=== PATIENT | male | born 1945 | race Caucasian/White ===

== ENCOUNTER 2016-12-30 23:16 | Inpatient (IN) | payer OTHER ==
[~2016-12-30] VITALS: Ht 180.3 cm; Wt 127.6 kg
[~2016-12-30 23:16] MED LIST: ACET-1256 PO; ASPI1TAB48 PO; DOCU100C31 PO; DORZ1SOL6 OPB; FRS/40 PO; GLC/500 PO; HYDR12.55 PO; LOSA1TAB PO; LPT/20 PO; METO50TA16 PO; ONDA4TAB46 PO; POTA10CA28 PO; PRED1SUS3 OPR
--- NOTE | 2016-12-30 23:50 | EMERGENCY ROOM VISIT NOTE ---
History Report prepared by Christine: Kunal Morales Under the Supervision of: Joce PedersenO. First contact with patient: 23:29 Chief Complaint: DIZZY Stated Complaint: DIZZY, TROUBLE WALKING, VERY HOT Nursing Triage Summary: pt states he didn't feel well today all day. states he laid in his room around noon and "it was very hot." states he felt warm after that and feels warm now. pt states he feels dizzy and was unable to get out of bed on his first try at home. states his vision is normal for him. denies chest pain, denies numbness/tingling. states he has back pain chronically and intermittent sob chronically. hx of DC and AAA repair ~11 years ago. denies n/v, diarrhea, urinary symptoms. upon assessment pt alert and oriented x4. pt breathing regularly and independently. pt able to get up from wheelchair and get in bed. skin hot to touch. lungs clear in all boyce. History of Present Illness The patient is a 71 year old male who presents to the Emergency Room with complaints of persistent generalized weakness starting today. He has been unable to get up from a sitting and lying down position. He feels warm to touch. The patient also complains of a fever. He currently denies any pain. As per , the patient has been somewhat confused. He denies cough, cold, chest pain, shortness of breath, abdominal pain, urinary symptoms, rash, or any other complaints. He reports a normal appetite and a normal fluid intake. He has a history of pneumonia but otherwise denies any history of lung disease. Source of History: patient, spouse/significant other Onset: today Position: other (global) Symptom Intensity: No pain Quality: other (generalized weakness) Associated Symptoms: + fevers, No SOB, No abdominal pain, No chest pain, No cough, No rash, No urinary symptoms Review of Systems See HPI for pertinent positives and negatives. A total of ten systems were reviewed and were otherwise negative. Past Medical & Surgical Medical Problems: (1) Diabetes (2) Hypertension (3) Sepsis Surgical Problems: (1) S/P AAA repair Family History Patient reports no known family medical history. Social History Smoking Status: Former Smoker Alcohol Use: occasionally Drug Use: none Marital Status: Housing Status: lives with significant other Occupation Status: retired Current/Historical Medications Scheduled Aspirin (Aspirin Low Dose), 81 MG PO QPM Atorvastatin (Atorvastatin Calcium), 20 MG PO QPM Dorzolamide Hcl-Timolol Maleat (Cosopt Oph), 1 DROPS OPB BID Furosemide (Lasix), 40 MG PO QAM Hydrochlorothiazide (Hydrochlorothiazide), 12.5 MG PO QAM Losartan Potassium (Cozaar), 25 MG PO QAM Metformin Hcl (Glucophage), 500 MG PO BIDM Metoprolol Tartrate (Lopressor) (Lopressor), 50 MG PO PM Potassium Chloride (Micro-K Ext Rel), 10 MEQ PO QAM Prednisolone Acetate (Ophth) (Pred Forte 1% Oph), 1 DROPS OPR BID Scheduled PRN Acetaminophen (Tylenol), 500 MG PO Q4H PRN for Pain Docusate Sodium (Docusate Sodium), 100 MG PO BID PRN for Constipation Ondansetron Hcl (Zofran), 4 MG PO Q8H PRN for Nausea Allergies Coded Allergies: BEE STING (Verified Allergy, Mild, SWELLING, 07/14/16) RADHA Inhibitors (Verified Adverse Reaction, Intermediate, COUGH, 07/14/16) Physical Exam Vital Signs Date Time Temp Pulse Resp B/P Pulse Ox O2 Delivery O2 Flow Rate FiO2 12/31/16 01:33 37.7 119 22 153/69 93 Room Air 12/31/16 00:02 93 Room Air 12/31/16 00:02 93 Room Air 12/30/16 23:48 120 12/30/16 23:37 38.4 122 18 150/103 94 Room Air 12/30/16 23:22 37.3 120 20 152/74 94 Room Air Physical Exam GENERAL: Awake, alert, well-appearing, in no distress HENT: Normocephalic, atraumatic. Oropharynx unremarkable. EYES: Normal conjunctiva. Sclera non-icteric. NECK: Supple. No nuchal rigidity. FROM. No JVD. RESPIRATORY: Clear to auscultation. CARDIAC: Tachycardic rate, normal rhythm. Extremities warm and well perfused. Pulses equal. ABDOMEN: Soft, non-distended. No tenderness to palpation. No rebound or guarding. No masses. RECTAL: Deferred. MUSCULOSKELETAL: Chest examination reveals no tenderness. The back is symmetrical on inspection without obvious abnormality. There is no CVA tenderness to palpation. No joint edema. LOWER EXTREMITIES: Calves are equal size bilaterally and non-tender. No edema. No discoloration. NEURO: Normal sensorium. No sensory or motor deficits noted. SKIN: No rash or jaundice noted. Abrasions to right forearm, not infected. Medical Decision & Procedures ER Provider Diagnostic Interpretation: X-ray: Per my interpretation: CHEST X-RAY Negative for infiltrates. Laboratory Results 12/31/16 00:05 Red Blood Count 5.07, Mean Corpuscular Volume 92.3, Mean Corpuscular Hemoglobin 30.8, Mean Corpuscular Hemoglobin Concent 33.3, Mean Platelet Volume 10.2, Neutrophils (%) (Auto) 87.7, Lymphocytes (%) (Auto) 8.0, Monocytes (%) (Auto) 3.8, Eosinophils (%) (Auto) 0.0, Basophils (%) (Auto) 0.2, Neutrophils # (Auto) 11.05, Lymphocytes # (Auto) 1.01, Monocytes # (Auto) 0.48, Eosinophils # (Auto) 0.00, Basophils # (Auto) 0.02 12/31/16 00:05 Test 12/31/16 00:05 12/31/16 00:20 12/31/16 00:22 12/31/16 01:21 White Blood Count 12.60 K/uL (4.8-10.8) Red Blood Count 5.07 M/uL (4.7-6.1) Hemoglobin 15.6 g/dL (14.0-18.0) Hematocrit 46.8 % (42-52) Mean Corpuscular Volume 92.3 fL (80-100) Mean Corpuscular Hemoglobin 30.8 pg (25-34) Mean Corpuscular Hemoglobin Concent 33.3 g/dl (32-36) Platelet Count 190 K/uL (130-400) Mean Platelet Volume 10.2 fL (7.4-10.4) Neutrophils (%) (Auto) 87.7 % Lymphocytes (%) (Auto) 8.0 % Monocytes (%) (Auto) 3.8 % Eosinophils (%) (Auto) 0.0 % Basophils (%) (Auto) 0.2 % Neutrophils # (Auto) 11.05 K/uL (1.4-6.5) Lymphocytes # (Auto) 1.01 K/uL (1.2-3.4) Monocytes # (Auto) 0.48 K/uL (0.11-0.59) Eosinophils # (Auto) 0.00 K/uL (0-0.5) Basophils # (Auto) 0.02 K/uL (0-0.2) RDW Standard Deviation 50.3 fL (36.4-46.3) RDW Coefficient of Variation 15.0 % (11.5-14.5) Immature Granulocyte % (Auto) 0.3 % Immature Granulocyte # (Auto) 0.04 K/uL (0.00-0.02) Anion Gap 7.0 mmol/L (3-11) Est Creatinine Clear Calc Drug Dose 80.5 ml/min Estimated GFR () 76.8 Estimated GFR (Non- 66.2 BUN/Creatinine Ratio 15.3 (10-20) Calcium Level 8.7 mg/dl (8.5-10.1) Magnesium Level 2.0 mg/dl (1.8-2.4) Total Bilirubin 0.9 mg/dl (0.2-1) Direct Bilirubin 0.2 mg/dl (0-0.2) Aspartate Amino Transf (AST/SGOT) 11 U/L (15-37) Alanine Aminotransferase (ALT/SGPT) 22 U/L (12-78) Alkaline Phosphatase 86 U/L (45-117) Troponin I < 0.015 ng/ml (0-0.045) Total Protein 7.3 gm/dl (6.4-8.2) Albumin 4.1 gm/dl (3.4-5.0) Bedside Lactic Acid Venous 1.41 mmol/L (0.90-1.70) Bedside Glucose 159 mg/dl (70-99) Urine Color YELLOW Urine Appearance CLEAR (CLEAR) Urine pH 6.0 (4.5-7.5) Urine Specific [place] 1.019 (1.000-1.030) Urine Protein 1+ (NEG) Urine Glucose (UA) NEG (NEG) Urine Ketones 1+ (NEG) Urine Occult Blood NEG (NEG) Urine Nitrite NEG (NEG) Urine Bilirubin NEG (NEG) Urine Urobilinogen NEG (NEG) Urine Leukocyte Esterase NEG (NEG) Urine WBC (Auto) 1-5 /hpf (0-5) Urine RBC (Auto) 0-4 /hpf (0-4) Urine Hyaline Casts (Auto) 1-5 /lpf (0-5) Urine Epithelial Cells (Auto) 5-10 /lpf (0-5) Urine Bacteria (Auto) NEG (NEG) Laboratory results reviewed by me Medications Administered Medications (Trade) Dose Ordered Sig/Lynn Route Start Time Stop Time Status Last Admin Dose Admin Sodium Chloride (Nss 1000ml) 1,000 ml @ 999 mls/hr Q1H1M STAT IV 12/30/16 23:55 12/31/16 00:55 DC 12/31/16 00:37 999 MLS/HR Acetaminophen (Tylenol Tab) 1,000 mg NOW STAT PO 12/30/16 23:55 12/30/16 23:57 DC 12/31/16 00:37 1,000 MG Ceftriaxone Sodium (Rocephin Inj) 1 gm NOW STAT IV 12/31/16 02:00 12/31/16 02:01 DC 12/31/16 02:08 1 GM ECG Indication: weakness Rate (beats per minute): 121 Rhythm: sinus tachycardia Findings: other (Nonspecific ST depression in v2 and v3; normal axis) ED Course 2329: The patient was evaluated in room B07. A complete history and physical exam was performed. 2355: Acetaminophen 1000 mg PO, Sodium Chloride 1000 ml @ 999 mls/hr IV 0131: Upon reexamination, the patient was resting comfortably. I discussed the test results and treatment plan with him. The patient will be evaluated for further management. 0200: Azithromycin 500 mg/Dextrose 255 ml @ 125 mls/hr IV, Rocephin Inj 1 gm IV 0204: I discussed the patient's case with Dr. Avila, from [facility]. Medical Decision Differential diagnosis includes but is not limited to sepsis, pneumonia, UTI, cardiac event. Resting in no distress; patient started on IV Rocephin and Zithromax IV fluids Tylenol. Patient is not in septic shock; this was discussed with family and patient as well as the hospitalist for admission Consults Time Called: 020 Consulting Physician: Dr. Avila, from [facility] Returned Call: 020 I discussed the patient's case with Dr. Avila, from [facility]. Impression Primary Impression: Acute febrile illness Additional Impressions: Acute weakness SIRS (systemic inflammatory response syndrome) Scribe Attestation The scribe's documentation has been prepared under my direction and personally reviewed by me in its entirety. I confirm that the note above accurately reflects all work, treatment, procedures, and medical decision making performed by me. Departure Information Dispostion Being Evaluated By Hospitalist Referrals Ben Ceron M.D. (PCP) Patient Instructions My [facility] Problem Qualifiers
[2016-12-30] MEDS ORDERED: ACETAMINOPHEN 500 MG TAB PO STA (23:55)
[2016-12-30] MEDS ORDERED: SODIUM CHLORIDE 0.9% 1000ML 1,000 ML IV STA (23:55)
[2016-12-31] VITALS (9 sets, daily range): BP systolic 107–177; BP diastolic 67–92; PULSE 74–118; TEMP 36.6–38.5; O2SAT 94–98; Ht 180.3 cm; Wt 127.6 kg
[2016-12-31 00:39] LABS: BASO % 0.2 %; BASO ABS # 0.02 K/uL (0-0.2); COMPLETE YES; HEMATOCRIT 46.8 % (42-52); IG% 0.3 %; LYMPH ABS # 1.01 K/uL (1.2-3.4); MEAN CELL VOLUME 92.3 fL (80-100); MEAN CORPUSCULAR HEMOGLOBIN 30.8 pg (25-34); MEAN CORPUSCULAR HGB CONC 33.3 g/dl (32-36); MEAN PLATELET VOLUME 10.2 fL (7.4-10.4); MONO % 3.8 %; NEUT % 87.7 %; PLATELET COUNT 190 K/uL (130-400); RED BLOOD COUNT 5.07 M/uL (4.7-6.1)
[2016-12-31 01:07] LABS: ALKALINE PHOSPHATASE 86 U/L (45-117); ALT/SGPT 22 U/L (12-78); BLOOD UREA NITROGEN 17 mg/dl (7-18); BUN/CREATININE RATIO 15.3 (10-20); CALCIUM 8.7 mg/dl (8.5-10.1); CARBON DIOXIDE 31 mmol/L (21-32); CHLORIDE 104 mmol/L (98-107); GLUCOSE 171 mg/dl (70-99)
[2016-12-31 01:10] LABS: POTASSIUM 4.2 mmol/L (3.5-5.1); SODIUM 142 mmol/L (136-145)
[2016-12-31 01:15] LABS: AST/SGOT 11 U/L (15-37)
[2016-12-31 01:51] LABS: URINE APPEARANCE CLEAR (CLEAR); URINE BILIRUBIN NEG (NEG); URINE COLOR YELLOW; URINE NITRITE NEG (NEG); URINE SPECIFIC GRAVITY 1.019 (1.000-1.030); UROBILINOGEN NEG (NEG)
[2016-12-31 01:53] LABS: MANUAL MICROSCOPIC REQUIRED? NO; REVIEW REQ? NO
[2016-12-31] MEDS ORDERED: AZITHROMYCIN IV 500 MG in DEXTROSE 5% 250ML 250 ML IV ONE (02:00)
[2016-12-31] MEDS ORDERED: CEFTRIAXONE SOD INJ 1 GM ADDVIAL IV STA (02:00)
[2016-12-31] MEDS ORDERED: METOPROLOL TARTRATE 50 MG TAB PO STA (02:43)
[2016-12-31] MEDS ORDERED: DOXYCYCLINE IV 100 MG in DEXTROSE 5% 100ML 100 ML IV STA (02:44)
[2016-12-31] MEDS ORDERED: DEXTROSE 50% 50 ML SYR IV PRN (02:45)
[2016-12-31] MEDS ORDERED: GLUCOSE 40% GEL 15 GM TUBE PO PRN (02:45)
[2016-12-31] MEDS ORDERED: GLUCAGON FOR INJ 1 MG VIAL SQ PRN (02:45)
[2016-12-31] MEDS ORDERED: ONDANSETRON INJ 2 MG/ML 2 ML VIAL IV PRN (02:45)
[2016-12-31] MEDS ORDERED: DOCUSATE SODIUM 100 MG CAP PO PRN (02:45)
[2016-12-31] MEDS ORDERED: MoRPHine SULFATE 4 MG/ML 1 ML CARP\\VIAL IV PRN (02:45)
[2016-12-31] MEDS ORDERED: GLUCOSE 10 TABS/TUBE PO PRN (02:45)
[2016-12-31] MEDS ORDERED: NITROGLYCERIN 0.4 MG SL PER TAB CHARGE SL PRN (02:45)
[2016-12-31] MEDS ORDERED: TRAMADOL HCL 50 MG TAB PO PRN (02:45)
[2016-12-31 02:58] LABS: THYROID STIMULATING HORMONE 0.511 uIu/ml (0.300-4.500)
[2016-12-31] MEDS ORDERED: SODIUM CHLORIDE 0.45% 1000ML 1,000 ML IV ONE (03:45)
--- NOTE | 2016-12-31 04:32 | HISTORY & PHYSICAL EXAMINATION ---
DATE OF ADMISSION: 12/31/2016 PRIMARY CARE DOCTOR: Dr. Ceron. CHIEF COMPLAINT: Weakness, fever. HISTORY OF PRESENT ILLNESS: Hx obtained from px and records. Medical history is significant for CAD status post CABG, HTN, hx postop AF sp anticoagulation, hypertension, hyperlipidemia, AAA status post surgery, past tobacco abuse, DM2 on oral medications. Recent confinement in August 2015 for pericardial effusion. One day history of generalized weakness, fever. No unusual headache, good appetite. Denies chest pain, shortness of breath, cough symptoms. Denies abd pain/diarrhea/bladder symptoms. Px co right leg discomfort as per . May have been from mowing. At the Emergency Room, the patient received IV ceftriaxone. MEDICAL HISTORY: As above. SURGERIES: He had AAA, bypass, cataract surgery. HOME MEDICATIONS: Include aspirin, dorzolamide, HCTZ, losartan, potassium chloride, atorvastatin, metformin, metoprolol, Vicodin, furosemide, atropine, nitroglycerin, Zofran, acetaminophen and Cosopt. ALLERGIES: RADHA INHIBITOR. FAMILY HISTORY: Heart disease. 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 Past tobacco abuse. No chronic ETOH intake. REVIEW OF SYSTEMS: As per HPI, all other ROS negative. PHYSICAL EXAMINATION: VITAL SIGNS: Blood pressure was noted to be 150/74, pulse rate 120, RR 27, sats 94 on room air. GENERAL: Noted to be obese, slightly anxious, no respiratory distress. SKIN: Normal color. HEENT: [employer] palpebral conjunctivae. Dry mucosa. NECK: Short neck. LUNGS: Decreased breath sounds. HEART: Tachycardic. ABDOMEN: Some distension. EXTREMITIES: Erythema on the right lower extremity, excoriation sandy on the right upper extremity. NEUROLOGIC: No gross focality. LABORATORY DATA: Hemoglobin was noted to be 15.6, hematocrit 46.8, white cells was 12.6, platelets 190. Sodium 140, potassium 4.2, chloride 104, CO2 31, BUN 70, creatinine 1.1, glucose 171 Hemoglobin A1c from August 2016 was 7. IMAGING DATA: Chest x-ray as per my interpretation : atelectasis, possible infiltrate on the left. EKG as per my interpretation, rate 120, sinus tachycardia, ST depressions in anterior leads. Urine analysis showed WBC 1-5, ketones. ASSESSMENT: 1. Sepsis possible sources : cellulitis, right lower extremity atypical pneumonia. 2. Right lower extremity swelling secondary to cellulitis ro DVT. 3. Hypertension, slightly elevated secondary to illness, missed nighttime medications. 4. Coronary artery disease, status post coronary artery bypass graft. 5. hx Abdominal aortic aneurysm sp surgery 6. hx postop PAF as per records sp coumadin px NSR 7. Past tobacco use. 8. DM2, on oral meds well controlled as of recent outpx HgA1c PLAN: PCU ff CS, Doxycycline for now. IVF, hold home diuretics for now until hydration improved Right lower extremity Dopplers to rule out deep vein thrombosis. Local measures for cellulitis ISS BG goal 140-180 ; patient due for hemoglobin A1c check. DVT prophylaxis. Lovenox subcutaneously. Full code. MTDD
[2016-12-31] MEDS: ACETAMINOPHEN 325 MG TAB PO PRN ×3 (05:02→16:45)
[2016-12-31 06:26] LABS: HEMATOCRIT 43.1 % (42-52); MEAN CELL VOLUME 91.1 fL (80-100); MEAN CORPUSCULAR HEMOGLOBIN 30.2 pg (25-34); MEAN CORPUSCULAR HGB CONC 33.2 g/dl (32-36); MEAN PLATELET VOLUME 10.2 fL (7.4-10.4); PLATELET COUNT 176 K/uL (130-400); RED BLOOD COUNT 4.73 M/uL (4.7-6.1); WHITE BLOOD COUNT 12.85 K/uL (4.8-10.8)
[2016-12-31 06:41] LABS: PROTHROMBIN TIME (PATIENT) 11.2 SECONDS (9.0-12.0)
[2016-12-31 06:48] LABS: ESTIMATED AVERAGE GLUCOSE 163 mg/dl; HA1C FLAG Normal (Normal)
--- NOTE | 2016-12-31 06:56 | DIAGNOSTIC IMAGING REPORT ---
ULTRASOUND RIGHT VENOUS DOPP LOWER EXT UNILAT CLINICAL HISTORY: Right leg swelling COMPARISON STUDY: No previous studies for comparison. FINDINGS: Real-time and color flow Doppler imaging were performed. Flow was seen within the femoral, popliteal and calf veins with no intraluminal thrombus demonstrated. The saphenous vein is patent. IMPRESSION: No evidence of right lower extremity DVT. Electronically signed by: West Friedman M.D. 12/31/2016 6:55 AM Dictated Date/Time: 12/31/2016 6:55 AM
[2016-12-31] MEDS: INSULIN ASPART 100 UNITS/ML 3 ML PEN SC SCH ×4 (07:00→20:31)
--- NOTE | 2016-12-31 07:18 | DIAGNOSTIC IMAGING REPORT ---
CHEST ONE VIEW PORTABLE CLINICAL HISTORY: sob COMPARISON STUDY: February 16, 2016 FINDINGS: The heart is mildly enlarged. There are postsurgical changes of a midline sternotomy. There are persistent basilar atelectatic changes with slight improvement in aeration of the lung bases.[ There is no failure. There are no significant pleural effusions. IMPRESSION: Slight improvement in the basilar atelectasis/scarring. Electronically signed by: West Friedman M.D. 12/31/2016 7:17 AM Dictated Date/Time: 12/31/2016 7:15 AM
[2016-12-31 07:36] LABS: BASO % 0.1 %; BASO ABS # 0.01 K/uL (0-0.2); COMPLETE YES; IG% 0.4 %; LYMPH % 8.6 %; MONO % 5.5 %; NEUT % 85.4 %
[2016-12-31] MEDS: METOPROLOL TARTRATE 50 MG TAB PO SCH ×2 (08:22→20:30)
[2016-12-31] MEDS: LOSARTAN POTASSIUM 25 MG TAB PO SCH (08:22)
[2016-12-31] MEDS: DORZOLAMIDE/TIMOLOL 22.3/6.8MG/ML 10 ML BTL OPB SCH ×2 (08:23→20:27)
[2016-12-31] MEDS: ENOXAPARIN 40 MG/0.4 ML SYR SC SCH (08:28)
[2016-12-31 11:16] LABS: LYME DISEASE AB IGG NEG (NEG); LYME DISEASE AB IGM NEG (NEG)
[2016-12-31] MEDS: ASPIRIN 81 MG ECTAB PO SCH (20:28)
[2016-12-31] MEDS: ATORVASTATIN 20 MG TAB PO SCH (20:28)
[2016-12-31] MEDS: DOXYCYCLINE IV 100 MG in DEXTROSE 5% 100ML 100 ML IV SCH (20:41)
--- NOTE | 2016-12-31 20:52 | Progress Note ---
Progress Note Date of Service December 31, 2016. Progress Note ATTENDING NOTE : pt admitted earlier today presented with dizzy spell , rt lower ext cellulitis Dizzy spell improved after IV hydration has persisted redness, increased warmth on rt lower ext improved since yesterday as per pt and no fever or chills WBC remains in 12K D/C IVF ok to DC tele cont IV Doxycycline till further improvement of lower ext cellulitis Lyme titer negative update given to pt plan to discharge home in 1-2 days with PO abx
[2017-01-01] VITALS (7 sets, daily range): BP systolic 125–149; BP diastolic 65–96; PULSE 75–80; TEMP 36.5–37; O2SAT 96–98
[2017-01-01] MEDS: INSULIN ASPART 100 UNITS/ML 3 ML PEN SC SCH ×4 (06:30→20:48)
[2017-01-01] MEDS: DOXYCYCLINE IV 100 MG in DEXTROSE 5% 100ML 100 ML IV SCH (09:12)
[2017-01-01] MEDS: DORZOLAMIDE/TIMOLOL 22.3/6.8MG/ML 10 ML BTL OPB SCH ×2 (09:12→20:47)
[2017-01-01] MEDS: METOPROLOL TARTRATE 50 MG TAB PO SCH ×2 (09:13→20:47)
[2017-01-01] MEDS: LOSARTAN POTASSIUM 25 MG TAB PO SCH (09:13)
[2017-01-01] MEDS: ENOXAPARIN 40 MG/0.4 ML SYR SC SCH (09:14)
[2017-01-01] MEDS: ACETAMINOPHEN 325 MG TAB PO PRN ×2 (11:43→20:46)
[2017-01-01] MEDS ORDERED: VANCOMYCIN INJ 2,700 MG in SODIUM CHLORIDE 0.9% 500ML 500 ML IV ONE (16:00)
[2017-01-01] MEDS ORDERED: VANCOMYCIN CONSULT ACTIVE PRN (16:00)
--- NOTE | 2017-01-01 16:01 | Pharmacy Progress Note ---
Pharmacy Abx Initial Consult Date of Service January 01, 2017. Pharmacy Dosing Scope Date of Consult: 01/01/17 Consultation requested by: Dr. Tsang Pharmacy is consulted to initiate Vancomycin IV dosing therapy, order appropriate labs and adjust drug dose/frequency. Subjective The patient is a 71 year old male admitted on December 31, 2016 at 02:14. Objective Height (Feet): 5 Height (Inches): 11.00 Weight (Kilograms): 127.600 Vital Signs (Past 12Hrs) Vital Signs Past 12 Hours Date Time Temp Pulse Resp B/P Pulse Ox O2 Delivery O2 Flow Rate FiO2 01/01/17 08:14 36.6 80 16 146/74 97 Room Air 01/01/17 08:00 96 Room Air Lab Results (24Hrs) Test 01/01/17 07:47 01/01/17 11:37 Bedside Glucose 118 mg/dl (70-99) 169 mg/dl (70-99) Micro Results Date/Time Source Procedure Growth Status 12/31/16 00:05 Blood Blood Culture - Preliminary NO GROWTH TO DATE. Resulted 12/31/16 00:05 Blood Blood Culture - Preliminary Gram Positive Cocci Resulted 12/31/16 01:21 Urine , Clean Catch Urine Culture - Preliminary NO GROWTH - LESS THAN 1,000 COLONIES/... Resulted Assessment & Plan Assessment 71 year old male admitted with LE cellulitis. Patient was initially started on doxycycline IV. This was changed to Vancomycin IV when 1/2 BC reported growth of GPC. Plan Vancomycin IV for treatment of LE cellulitis, GPC bacteremia Vancomycin IV * Loading dose: 2700 mg (21 mg/kg) * Maintenance dose: 1600 mg IV (12.5 mg/kg) every 12 hours * Goal trough level for cellulitis/bacteremia : 15 to 20 mcg/mL * Trough level ordered for 01/03/17 * A less than traditional dose and extended dosing interval have been selected due to likelihood of drug accumulation in obese patient. Pharmacy will continue to follow and will adjust dose/frequency as necessary. Thank you.
[2017-01-01] MEDS: ASPIRIN 81 MG ECTAB PO SCH (20:47)
[2017-01-01] MEDS: ATORVASTATIN 20 MG TAB PO SCH (20:48)
--- NOTE | 2017-01-01 21:08 | Progress Note ---
Internal Med Progress Note Date of Service: January 01, 2017. Provider Documentation: SUBJECTIVE: no fever or chills no complain of dizzy spell OBJECTIVE: Vital Signs-as noted below Exam: General-no sign of distress Eyes-sclera non icteric ENT-NAD Neck-no JVD , no thyromegaly Lungs-CTA Heart-regular S1/S2 Abdomen-soft, non tender Extremities-improved erythema on rt lower ext Neuro-AAO x3, no focal deficit Lab data as noted below. ASSESSMENT & PLAN: RT LOWER EXT CELLULITIS : improving blood culture 1/2 bottle gram positive bacteremia started on IV Vancomycin D/c Doxycycline follow blood culture report DIZZY SPELL /LIGHTHEADEDNESS; due to dehydration symptom resolved IVF D/aislinn pt is encouraged to increase oral fluid intake DVT PROPHYLAXIS sub q heparin DISPOSITION Possible discharge home in 1-2 days Medicine follow up with Dr Ceron Vital Signs: Date Time Temp Pulse Resp B/P Pulse Ox O2 Delivery O2 Flow Rate FiO2 01/01/17 19:50 96 Room Air 01/01/17 17:05 36.8 75 19 129/96 96 01/01/17 16:00 96 Room Air 01/01/17 08:14 36.6 80 16 146/74 97 Room Air 01/01/17 08:00 96 Room Air 01/01/17 00:00 37.0 80 20 125/65 96 Room Air 01/01/17 00:00 96 Room Air 12/31/16 23:24 79 94 21 Lab Results: Results Past 24 Hours Test 01/01/17 07:47 01/01/17 11:37 01/01/17 16:56 01/01/17 19:53 Range/Units Bedside Glucose 118 169 141 175 70-99 mg/dl Microbiology Results 01/01/17 MRSA DNA Surveillance Screen, Received Pending
[2017-01-02 01:41] VITALS: O2SAT 96
[2017-01-02] MEDS: VANCOMYCIN INJ 1,600 MG in SODIUM CHLORIDE 0.9% 500ML 500 ML IV SCH ×2 (02:13→13:30)
[2017-01-02 07:42] VITALS: BP 160/88; PULSE 82; TEMP 37; O2SAT 98
[2017-01-02] MEDS: METOPROLOL TARTRATE 50 MG TAB PO SCH (07:43)
[2017-01-02] MEDS: ENOXAPARIN 40 MG/0.4 ML SYR SC SCH (07:43)
[2017-01-02] MEDS: LOSARTAN POTASSIUM 25 MG TAB PO SCH (07:43)
[2017-01-02] MEDS: DORZOLAMIDE/TIMOLOL 22.3/6.8MG/ML 10 ML BTL OPB SCH (07:43)
[2017-01-02] MEDS: INSULIN ASPART 100 UNITS/ML 3 ML PEN SC SCH ×3 (07:46→16:30)
[2017-01-02 08:08] LABS: CREATININE 0.87 mg/dl (0.60-1.40)
[2017-01-02 08:13] LABS: HEMATOCRIT 45.1 % (42-52); MEAN CELL VOLUME 92.6 fL (80-100); MEAN CORPUSCULAR HEMOGLOBIN 30.6 pg (25-34); MEAN PLATELET VOLUME 10.8 fL (7.4-10.4); PLATELET COUNT 185 K/uL (130-400); RED BLOOD COUNT 4.87 M/uL (4.7-6.1); WHITE BLOOD COUNT 7.36 K/uL (4.8-10.8)
[2017-01-02] MEDS: ACETAMINOPHEN 325 MG TAB PO PRN (13:36)
[2017-01-02 14:58] VITALS: BP 124/64; PULSE 73; TEMP 36.6; O2SAT 95
--- NOTE | 2017-01-02 15:23 | Discharge Instructions ---
Discharge Instructions Date of Service January 02, 2017. Admission Reason for Admission: Sepsis Discharge Discharge Diagnosis / Problem: RT LOWER EXTREMITY CELLULITIS Discharge Goals Goal(s): Decrease discomfort, Improve disease control, Diagnostic testing, Therapeutic intervention Activity Recommendations Activity Limitations: resume your previous activity . Instructions / Follow-Up Instructions / Follow-Up HOSPITAL FOLLOW UP ON 01/07/2017 @ 1:[address] Ben Ceron MD [facility] Current Hospital Diet Patient's current hospital diet: AHA Diet (Heart Healthy), Diabetes Type 2 Diet Discharge Diet Recommended Diet: AHA Diet (Heart Healthy), Diabetes Type 2 Diet Pending Studies Studies pending at discharge: no Laboratory Results Hemoglobin A1c Test 12/31/16 00:05 Range/Units Estimated Average Glucose 163 mg/dl Hemoglobin A1c 7.3 H 4.5-5.6 % Medical Emergencies . Who to Call and When: Medical Emergencies: If at any time you feel your situation is an emergency, please call 911 immediately. . Non-Emergent Contact Non-Emergency issues call your: Primary Care Provider . . "Provider Documentation" section prepared by Elaine Tsang. . VTE Core Measure Inpt VTE Proph given/why not?: Enoxaparin (Lovenox) [place] Drug Monitoring Program Search Results: no issues identified
[2017-01-02] MEDS ORDERED: ONDANSETRON 4 MG TAB PO PRN (15:30)
[2017-01-02] MEDS ORDERED: ACETAMINOPHEN 500 MG TAB PO PRN (15:30)
[2017-01-02] MEDS ORDERED: DOXY-300 PO (16:08)
[2017-01-02 16:12] VITALS: BP 124/64; PULSE 73; TEMP 36.6; O2SAT 95
--- NOTE | 2017-01-02 16:17 | Progress Note ---
Internal Med Progress Note Date of Service: January 02, 2017. Provider Documentation: SUBJECTIVE: feels fine, no fever or chills no pain or discomfort on rt lower extremity redness and swelling in rt lower extremity has improved markedly no dizzy spell or lightheadedness OBJECTIVE: Vital Signs-as noted below Exam: General-no sign of distress Eyes-sclera non icteric ENT-NAD Neck-no JVD , no thyromegaly Lungs-CTA Heart-regular S1/S2 Abdomen-soft, non tender Extremities-minimum erythema on rt lower ext , marked improvement since admission Neuro-AAO x3, no focal deficit Lab data as noted below. ASSESSMENT & PLAN: RT LOWER EXT CELLULITIS : improved markedly almost complete resolution of erythema, no sign of warmth or swelling blood culture 1/2 bottle gram positive bacteremia -possible contamination 1/2 bottle gram negative coccus -sensitivity pending repeat blood cultures drawn yesterday 01/01/17 -report pending pt clinically much improved leukocytosis has resolved, WBC 7 today stable to be discharged home with PO Doxycycline for 7 more days ( needs total 10 days tx ) pt's has hospital follow up scheduled with His Family physician on 01/07 Blood culture reports will be followed , pt will be notified if repeat blood culture shows bacterial growth and require change of antibiotic after sensitivity available DIZZY SPELL /LIGHTHEADEDNESS; resolved , no symptom for past 48 hrs ambulating independently with out any symptom due to dehydration symptom resolved IVF D/aislinn pt is encouraged to increase oral fluid intake DVT PROPHYLAXIS sub q heparin DISPOSITION stable to be discharge home today pt will be updated regarding pending blood culture report -possible available tomorrow Pt's Pharmacy will be notified any change of antibiotic required depending on the sensitivity Medicine follow up with Dr Ceron on 01/07/17 plan to care updated to Patient and his all questions answered , in agreement with being discharged home today pending final blood culture report Vital Signs: Date Time Temp Pulse Resp B/P Pulse Ox O2 Delivery O2 Flow Rate FiO2 01/02/17 14:58 36.6 73 20 124/64 95 Room Air 01/02/17 08:00 Room Air 01/02/17 07:42 37.0 82 20 160/88 98 Room Air 01/02/17 01:41 96 Room Air 01/01/17 23:51 36.5 76 20 149/74 98 Room Air 01/01/17 19:50 96 Room Air 01/01/17 17:05 36.8 75 19 129/96 96 Lab Results: Results Past 24 Hours Test 01/01/17 16:56 01/01/17 19:53 01/02/17 06:58 01/02/17 07:47 Range/Units Bedside Glucose 141 175 147 70-99 mg/dl White Blood Count 7.36 4.8-10.8 K/uL Red Blood Count 4.87 4.7-6.1 M/uL Hemoglobin 14.9 14.0-18.0 g/dL Hematocrit 45.1 42-52 % Mean Corpuscular Volume 92.6 80-100 fL Mean Corpuscular Hemoglobin 30.6 25-34 pg Mean Corpuscular Hemoglobin Concent 33.0 32-36 g/dl RDW Standard Deviation 51.7 36.4-46.3 fL RDW Coefficient of Variation 15.2 11.5-14.5 % Platelet Count 185 130-400 K/uL Mean Platelet Volume 10.8 7.4-10.4 fL Creatinine 0.87 0.60-1.40 mg/dl Est Creatinine Clear Calc Drug Dose 102.9 ml/min Estimated GFR () 99.2 Estimated GFR (Non- 85.6 Test 01/02/17 11:28 Range/Units Bedside Glucose 187 70-99 mg/dl Microbiology Results 01/01/17 Blood Culture, Received Pending 01/01/17 Blood Culture, Received Pending
--- NOTE | 2017-01-02 16:19 | Discharge Summary ---
Discharge Summary Date of Service January 02, 2017. Discharge Summary Admission Date: December 31, 2016 at 02:14 Discharge Date: January 02, 2017 Discharge Disposition: Home Principal Diagnosis: RT LOWER EXTREMITY CELLULITIS Procedures: ULTRASOUND RIGHT VENOUS DOPP LOWER EXT UNILAT CLINICAL HISTORY: Right leg swelling COMPARISON STUDY: No previous studies for comparison. FINDINGS: Real-time and color flow Doppler imaging were performed. Flow was seen within the femoral, popliteal and calf veins with no intraluminal thrombus demonstrated. The saphenous vein is patent. IMPRESSION: No evidence of right lower extremity DVT. Medication Reconciliation New Medications: Doxycycline (Monohydrate) (Doxycycline) 100 Mg Cap 1 CAP PO BID for 7 Days, #14 CAP Continued Medications: Acetaminophen (Tylenol) 500 Mg Tab 500 MG PO Q4H PRN for Pain Aspirin (Aspirin Low Dose) 81 Mg Tab 81 MG PO QPM Atorvastatin (Atorvastatin Calcium) 20 Mg Tab 20 MG PO QPM Docusate Sodium (Docusate Sodium) 100 Mg Cap 100 MG PO BID PRN for Constipation Dorzolamide Hcl-Timolol Maleat (Cosopt Oph) 1 Jessy Jessy 1 DROPS OPB BID Furosemide (Lasix) 40 Mg Tab 40 MG PO QAM Hydrochlorothiazide (Hydrochlorothiazide) 12.5 Mg Tab 12.5 MG PO QAM Losartan Potassium (Cozaar) 25 Mg Tab 25 MG PO QAM Metformin Hcl (Glucophage) 500 Mg Tab 500 MG PO BIDM, TAB Metoprolol Tartrate (Lopressor) (Lopressor) 50 Mg Tab 50 MG PO PM Ondansetron Hcl (Zofran) 4 Mg Tab 4 MG PO Q8H PRN for Nausea, TAB Potassium Chloride (Micro-K Ext Rel) 10 Meq Capcr 10 MEQ PO QAM Prednisolone Acetate (Ophth) (Pred Forte 1% Oph) 1 % Yulissa 1 DROPS OPR BID, #10 ML Referrals At Discharge Follow up Referrals: Physician Referral - 01/07/17 with Ben Ceron M.D. Admission Information HPI (per Admitting provider): DATE OF ADMISSION: 12/31/2016 PRIMARY CARE DOCTOR: Dr. Ceron. CHIEF COMPLAINT: Weakness, fever. HISTORY OF PRESENT ILLNESS: Hx obtained from px and records. Medical history is significant for CAD status post CABG, HTN, hx postop AF sp anticoagulation, hypertension, hyperlipidemia, AAA status post surgery, past tobacco abuse, DM2 on oral medications. Recent confinement in August 2015 for pericardial effusion. One day history of generalized weakness, fever. No unusual headache, good appetite. Denies chest pain, shortness of breath, cough symptoms. Denies abd pain/diarrhea/bladder symptoms. Px co right leg discomfort as per . May have been from mowing. At the Emergency Room, the patient received IV ceftriaxone. MEDICAL HISTORY: As above. SURGERIES: He had AAA, bypass, cataract surgery. HOME MEDICATIONS: Include aspirin, dorzolamide, HCTZ, losartan, potassium chloride, atorvastatin, metformin, metoprolol, Vicodin, furosemide, atropine, nitroglycerin, Zofran, acetaminophen and Cosopt. ALLERGIES: RADHA INHIBITOR. FAMILY HISTORY: Heart disease. 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 Past tobacco abuse. No chronic ETOH intake. REVIEW OF SYSTEMS: As per HPI, all other ROS negative. PHYSICAL EXAMINATION: VITAL SIGNS: Blood pressure was noted to be 150/74, pulse rate 120, RR 27, sats 94 on room air. GENERAL: Noted to be obese, slightly anxious, no respiratory distress. SKIN: Normal color. HEENT: Olivarez palpebral conjunctivae. Dry mucosa. NECK: Short neck. LUNGS: Decreased breath sounds. HEART: Tachycardic. ABDOMEN: Some distension. EXTREMITIES: Erythema on the right lower extremity, excoriation sandy on the right upper extremity. NEUROLOGIC: No gross focality. Physical Exam (per Admitting): PHYSICAL EXAMINATION: VITAL SIGNS: Blood pressure was noted to be 150/74, pulse rate 120, RR 27, sats 94 on room air. GENERAL: Noted to be obese, slightly anxious, no respiratory distress. SKIN: Normal color. HEENT: Olivarez palpebral conjunctivae. Dry mucosa. NECK: Short neck. LUNGS: Decreased breath sounds. HEART: Tachycardic. ABDOMEN: Some distension. EXTREMITIES: Erythema on the right lower extremity, excoriation sandy on the right upper extremity. NEUROLOGIC: No gross focality. Hospital Course RT LOWER EXT CELLULITIS : improved markedly almost complete resolution of erythema, no sign of warmth or swelling blood culture 1/2 bottle gram positive bacteremia -possible contamination 1/2 bottle gram negative coccus -sensitivity pending repeat blood cultures drawn yesterday 01/01/17 -report pending pt clinically much improved leukocytosis has resolved, WBC 7 today stable to be discharged home with PO Doxycycline for 7 more days ( needs total 10 days tx ) pt's has hospital follow up scheduled with His Family physician on 01/07 Blood culture reports will be followed , pt will be notified if repeat blood culture shows bacterial growth and require change of antibiotic after sensitivity available DIZZY SPELL /LIGHTHEADEDNESS; resolved , no symptom for past 48 hrs ambulating independently with out any symptom due to dehydration symptom resolved IVF D/aislinn pt is encouraged to increase oral fluid intake DVT PROPHYLAXIS sub q heparin DISPOSITION stable to be discharge home today pt will be updated regarding pending blood culture report -possible available tomorrow Pt's Pharmacy will be notified any change of antibiotic required depending on the sensitivity Medicine follow up with Dr Ceron on 01/07/17 plan to care updated to Patient and his all questions answered , in agreement with being discharged home today pending final blood culture report Total time spent on discharge = 40 mins This includes examination of the patient, discharge planning, medication reconciliation, and communication with other providers. Discharge Instructions Discharge Instructions Date of Service January 02, 2017. Admission Reason for Admission: Sepsis Discharge Discharge Diagnosis / Problem: RT LOWER EXTREMITY CELLULITIS Discharge Goals Goal(s): Decrease discomfort, Improve disease control, Diagnostic testing, Therapeutic intervention Activity Recommendations Activity Limitations: resume your previous activity . Instructions / Follow-Up Instructions / Follow-Up HOSPITAL FOLLOW UP ON 01/07/2017 @ 1:[address] Ben Ceron MD Family Practice [facility] Hospital Diet Patient's current hospital diet: AHA Diet (Heart Healthy), Diabetes Type 2 Diet Discharge Diet Recommended Diet: AHA Diet (Heart Healthy), Diabetes Type 2 Diet Pending Studies Studies pending at discharge: no Laboratory Results Hemoglobin A1c Test 12/31/16 00:05 Range/Units Estimated Average Glucose 163 mg/dl Hemoglobin A1c 7.3 H 4.5-5.6 % Medical Emergencies . Who to Call and When: Medical Emergencies: If at any time you feel your situation is an emergency, please call 911 immediately. . Non-Emergent Contact Non-Emergency issues call your: Primary Care Provider . . "Provider Documentation" section prepared by Elaine Tsang. . VTE Core Measure Inpt VTE Proph given/why not?: Enoxaparin (Lovenox) [place] Drug Monitoring Program Search Results: no issues identified Additional Copies To Ben Ceron M.D.
[2017-01-02] MEDS ORDERED: METFORMIN HCL 500 MG TAB PO SCH (17:00)
[2017-01-02] MEDS ORDERED: PrednisoLONE ACET 1% OP SUSP 5 ML BTL OPR SCH (20:00)
[2017-01-03] MEDS ORDERED: VANCOMYCIN TROUGH SCH (01:30)
[2017-01-03] MEDS ORDERED: POTASSIUM CHLORIDE 10 MEQ TABCR PO SCH (08:00)
[2017-01-03] MEDS ORDERED: HYDROCHLOROTHIAZIDE 25 MG TAB PO SCH (08:00)
[2017-01-03] MEDS ORDERED: FUROSEMIDE 40 MG TAB PO SCH (08:00)
[2017-01-03] MEDS ORDERED: CEPH500C2 PO (08:08)
--- NOTE | 2017-01-03 08:21 | Progress Note ---
Progress Note Date of Service January 03, 2017. Progress Note ATTENDING NOTE : blood culture 12/31/16 report reviewed Group B streptococcus 1/2 bottles sensitive to Vanco /Rocephin /Cefotaxime resistant to Erythromycin/clindamycin Blood culture drawn on 01/01/17 -no growth to date Antibiotic changed to Keflex 500 mg PO QID script sent to Pharmacy called Pt -updated regarding new Antibiotic change
== END 2017-01-02 18:45 | disposition home or self-care (01) | DRG 872 ==
LOC: ENRESERVTM → ENRESERVDT → C.EDB 23:17 → C.2T 12-31 02:14 → C.MS4W 12-31 20:48
PROVIDERS: ADMIT Hospitalist; ATTEND Hospitalist
DX: A41.9 Sepsis, unspecified organism (principal); L03.115 Cellulitis of right lower limb; I10 Essential (primary) hypertension; E11.9 Type 2 diabetes mellitus without complications; E78.5 Hyperlipidemia, unspecified; E86.0 Dehydration; Z87.891 Personal history of nicotine dependence; Z79.01 Long term (current) use of anticoagulants; Z79.82 Long term (current) use of aspirin

== ENCOUNTER 2017-02-14 11:30 | Emergency (ER) | payer OTHER ==
[~2017-02-14] VITALS: Ht 180.3 cm; Wt 127.0 kg
[2017-02-14 11:34] VITALS: TEMP 36.4; Ht 180.3 cm; Wt 127.0 kg
--- NOTE | 2017-02-14 12:19 | DIAGNOSTIC IMAGING REPORT ---
LEFT HAND 3 VIEWS CLINICAL HISTORY: Table saw injury. FINDINGS: 3 views of the left hand are obtained. No prior studies are available for comparison at the time of dictation. The examination is degraded by an ability to properly position the hand. The skeletal structures are well mineralized for age. No fracture is identified. Mild arthritic change is seen at the first carpometacarpal and metacarpophalangeal joints. Mild osteoarthritis is also seen involving the interphalangeal joints. Soft tissue edema is suggested dorsally and involving the fingers. No radiodense foreign body is identified. IMPRESSION: 1. Soft tissue swelling with no radiographic evidence of left hand fracture. 2. Mild arthritic change as above. Electronically signed by: Chad Poole M.D. 02/14/2017 12:17 PM Dictated Date/Time: 02/14/2017 12:15 PM
[2017-02-14] MEDS ORDERED: XYLOCAINE 1%/SOD BICARB 20 ML VIAL INFIL ONE (12:59)
[2017-02-14] MEDS ORDERED: CEPH500C PO (13:53)
[2017-02-14] MEDS ORDERED: CEPHALEXIN MONOHYDRATE 250 MG CAP PO ONE (14:00)
[2017-02-14 14:13] VITALS: BP 150/86; PULSE 69; O2SAT 95
--- NOTE | 2017-02-14 16:35 | EMERGENCY ROOM VISIT NOTE ---
ED Visit Note First contact with patient: 12:53 Chief complaint: Left little, ring, and index finger lacerations HPI: This 71-year-old white male presents for evaluation of a laceration on his left little finger, ring finger, and index finger. The patient was using a table saw today and accidentally put his hand into the blade. He states he was using a push stick but it got caught and pulled his hand into the blade. Bleeding was controlled with pressure. They deny any numbness, tingling, or loss of motion. No other complaints. He believes he can see the bone in one of the lacerations. Tetanus is believed to be up-to-date. Pain is 4/10. Right -hand dominant. His accompanies him today. Supplemental sheet was reviewed. Previous surgeries: None Medical history: Significant for hypertension, elevated cholesterol, diabetes Current Medications: Reviewed and filed in patient's chart Allergies: Charles inhibitors, bee stings Tetanus: Within 10 years Family History: Noncontributory. Social History: Patient is retired. . No tobacco use. REVIEW OF SYSTEM: HEENT: No dizziness, visual problems, hearing loss, or tinnitus. There is no difficulty swallowing and no oral lesions are present. PULMONARY: No cough, shortness of breath, sputum production or hemoptysis. CARDIOVASCULAR: No chest pain, palpitations, shortness of breath or peripheral edema. GASTROINTESTINAL: No diarrhea, constipation, nausea, vomiting, or abdominal pain. GENITOURINARY: No dysuria, frequency, urgency or nocturia. NEUROLOGIC: No weakness, muscle tenderness, epilepsy or history of neurological problems. MUSCULOSKELETAL: No history of joint tenderness/swelling. Positive history of arthritis and arthralgias. SKIN: No rashes or lesions. ENDOCRINE: No history of thyroid disorders, or abnormal hair growth. Physical Exam: Vitals: Afebrile. Reviewed and filed in patient's chart General: Well-developed, well-nourished, elderly white male, in no acute distress. Obvious discomfort. He is sitting on the bed. Alert and oriented. Skin: Warm and dry with good turgor. No rashes. No ecchymosis or erythema. The patient is not diaphoretic. No abrasions. The patient has a 1 cm laceration present on the tip of his left little finger. There is no nail involvement. A 5 cm laceration present on the dorsal surface of his ring finger middle phalanx. Bleeding is controlled. There is some visible tissue missing. He has a large complex laceration on the dorsum of his left index finger. The central one third of the fingernail is entirely missing. Nail bed is exposed. There is visible tissue missing over the distal phalanx and middle phalanx. Total length of the index finger laceration is approximately 3 cm. Musculoskeletal: Patient has intact flexion and extension at the MCP, PIP, and DIP joints of all digits of the left hand. Strength is 5/5 for resisted extension for all digits. No collateral ligament laxity is found for any of the digits. Neurologic: Gross sensation is intact across the fingers of the left hand by soft touch. Capillary refill is equal for each of the fingers.. Impression: Left hand little finger 1 cm laceration. Left ring finger 1.5 cm laceration with tendon involvement. Left index finger laceration with nailbed involvement and phalanx exposure. Procedure: Informed oral consent was obtained for repair. The left hand and digits were prepped with Betadine and draped with a sterile towel. Each finger was anesthetized using 1% plain buffered lidocaine in a digital block. A total of 14 mL was used. Finger tourniquets were applied to each of the digits. Thorough inspection was performed for each finger. Wounds were irrigated copiously using normal sterile saline under jet spray lavage. There is no visible bone or nail involvement on the little finger wound. Patient did violate the tendon sheath on the extensor tendon of the ring finger. The superficial fibers of the tendon were also violated but more than 90% of the body of the tendon is intact. It appears the blade skived off of the tendon itself. Index finger wound has exposed distal phalanx just proximal to the nail. There is also nailbed exposure through the central one third. The nail remains intact along the peripheral edges. There is significant disruption of the nail fold in the index finger with no viable repair. No tendon exposure in the index finger. Wounds were closed using 4-0 nylon. Good wound edge approximation was achieved. I was able to obtain coverage over the tendon on the ring finger and they phalanx on the index finger. Nailbed remained exposed. Hemostasis was achieved. Plan: Patient was educated regarding today's findings. Conservative care measures were discussed. Cleanse the wounds daily with soap and water and reapply a small amount of bacitracin starting in 48 hours. Ice and elevate intermittently as needed for discomfort. Tylenol and ibuprofen every 6 hours as needed for pain. Prescription was given for Keflex 500 mg 4 times a day 5 days. First dose was given in the ED. Wound care handout was provided. Sutures out in 12 days. He may shower. Avoid soaking or swimming for two weeks. Return to the ER for any acute changes or signs of infection. He Should follow-up with his PCP or orthopedist this week for wound check due to the tendon and bone involvement. Current/Historical Medications Scheduled Aspirin (Aspirin Low Dose), 81 MG PO QPM Atorvastatin (Atorvastatin Calcium), 20 MG PO QPM Cephalexin Monohydrate (Keflex), 500 MG PO QID Dorzolamide Hcl-Timolol Maleat (Cosopt Oph), 1 DROPS OPB BID Furosemide (Lasix), 40 MG PO QAM Hydrochlorothiazide (Hydrochlorothiazide), 12.5 MG PO QAM Losartan Potassium (Cozaar), 25 MG PO QAM Metformin Hcl (Glucophage), 500 MG PO BIDM Metoprolol Tartrate (Lopressor) (Lopressor), 50 MG PO PM Potassium Chloride (Micro-K Ext Rel), 10 MEQ PO QAM Prednisolone Acetate (Ophth) (Pred Forte 1% Oph), 1 DROPS OPR BID Scheduled PRN Acetaminophen (Tylenol), 500 MG PO Q4H PRN for Pain Docusate Sodium (Docusate Sodium), 100 MG PO BID PRN for Constipation Ondansetron Hcl (Zofran), 4 MG PO Q8H PRN for Nausea Allergies Coded Allergies: BEE STING (Verified Allergy, Mild, SWELLING, 02/14/17) CHARLES Inhibitors (Verified Adverse Reaction, Intermediate, COUGH, 02/14/17) Vital Signs Date Time Temp Pulse Resp B/P (MAP) Pulse Ox O2 Delivery O2 Flow Rate FiO2 02/14/17 14:13 69 18 150/86 95 02/14/17 11:34 36.4 76 18 212/108 96 Room Air Medications Administered Medications (Trade) Dose Ordered Sig/Lynn Route Start Time Stop Time Status Last Admin Dose Admin Cephalexin Monohydrate (Keflex Cap) 500 mg NOW ONCE PO 02/14/17 14:00 02/14/17 14:01 DC 02/14/17 14:17 500 MG Departure Information Impression Primary Impression: Nailbed laceration, finger Additional Impression: Finger laceration involving tendon Dispostion Home / Self-Care Condition GOOD Prescriptions Cephalexin Monohydrate (Keflex) 500 Mg Cap 500 MG PO QID, #20 CAP Prov: Gokul Barahona,P.A. 02/14/17 Forms WORK / SCHOOL INSTRUCTIONS, HOME CARE DOCUMENTATION FORM, Days to leave dressing on: 2 Clean wound with;: soap and water Number of times/day to clean wound: 1 Coat wound with: antibiotic ointment Suture removal in how many days: 12 MOTRIN USE, TYLENOL USE, WOUND CARE INSTRUCTIONS, IMPORTANT VISIT INFORMATION Patient Instructions [facility] Additional Instructions Cleanse the wounds daily with soap and water starting on Wednesday Avoid swimming or soaking for 2 weeks you may shower and wash your hands starting on Wednesday Tylenol and Motrin every 6 hours as needed for discomfort Sutures out in 12 days Return to the ED for any acute changes or signs of infection Follow-up with your PCP or orthopedist this week for wound check Keflex one pill 4 times a day 5 days Problem Qualifiers
== END 2017-02-14 14:15 | disposition home or self-care (01) ==
LOC: C.EDB 11:31 → C.EDD 14:15
DX: S61.311A Laceration without foreign body of left index finger with damage to nail, initial encounter (principal); S56.426A Laceration of extensor muscle, fascia and tendon of left ring finger at forearm level, initial encounter; W31.2XXA Contact with powered woodworking and forming machines, initial encounter; I10 Essential (primary) hypertension; E78.00 Pure hypercholesterolemia, unspecified; E11.9 Type 2 diabetes mellitus without complications; Z79.899 Other long term (current) drug therapy; Z79.82 Long term (current) use of aspirin; Z79.84 Long term (current) use of oral hypoglycemic drugs; Z88.8 Allergy status to other drugs, medicaments and biological substances; Z91.030 Bee allergy status